=== PATIENT | female | born 1985 | race American Indian/Alaskan Native ===

== ENCOUNTER 2017-05-25 15:25 | Emergency (ER) | payer SELFPAY ==
--- NOTE | 2017-05-25 17:55 | XRay Report ---
FINAL REPORT EXAM: XR FOOT 3+V RT HISTORY: Injury to bottom of rt heel; right foot swelling TECHNIQUE: AP, lateral, and oblique portable views of the right foot PRIORS: None. FINDINGS: There is no evidence for acute fracture or dislocation. No soft tissue swelling or radiopaque foreign bodies are seen. Bony mineralization is normal. Joint spaces are maintained. IMPRESSION: No acute soft tissue or bony abnormality noted.
[2017-05-25 19:06] VITALS: BP 135/81
--- NOTE | 2017-05-25 19:34 | Emergency Department Report ---
ED Lower Extremity HPI - General Chief Complaint: Extremity Injury, Lower Stated Complaint: RIGHT FOOT SWOLLEN Time Seen by Provider: 05/25/17 19:17 Source: patient Mode of arrival: Ambulatory Limitations: No Limitations - History of Present Illness Initial Comments: 31-year-old female presents to ER with complaints of pain in her right heel. This happened yesterday while running. Patient has swelling and pain right heel , she expresses difficulty while walking. MD Complaint: foot injury (injury to right heel) -: Sudden (this happened yesterday while running) Injury: Foot: Right (contusion, heel of right foot) Type of Injury: blunt Place: street/outdoors Severity: moderate Severity scale (0 -10): 6 Worsens With: nothing Context: running Associated Symptoms: swelling, able to partially bear weight - Related Data Previous Rx's Medication Instructions Recorded Last Taken Type Ibuprofen [Motrin 600 MG tab] 600 mg PO Q6HR PRN #30 tablet 05/25/17 Unknown Rx Allergies Allergy/AdvReac Type Severity Reaction Status Date / Time No Known Allergies Allergy Verified 05/25/17 15:37 ED Review of Systems ROS: Stated complaint: RIGHT FOOT SWOLLEN Other details as noted in HPI Comment: All other systems reviewed and negative Constitutional: see HPI. denies: fever, malaise, weakness Eyes: denies: eye pain, eye discharge, vision change ENT: denies: throat pain, dental pain, hearing loss, epistaxis Respiratory: no symptoms reported. denies: cough, shortness of breath, SOB with exertion Cardiovascular: denies: chest pain, palpitations, edema, syncope, paroxysmal nocturnal dyspnea Endocrine: no symptoms reported Gastrointestinal: denies: nausea, vomiting, diarrhea, constipation, hematemesis , melena Genitourinary: denies: dysuria, frequency, hematuria, discharge Musculoskeletal: other (swelling and some tenderness heel of right foot) Neurological: denies: headache, weakness, numbness, paresthesias ED Past Medical Hx - Past Medical History Previous Medical History?: No - Surgical History Past Surgical History?: No - Social History Smoking Status: Never Smoker Substance Use Type: None - Medications Home Medications: Home Medications Medication Instructions Recorded Confirmed Last Taken Type Ibuprofen [Motrin 600 MG tab] 600 mg PO Q6HR PRN #30 tablet 05/25/17 Unknown Rx ED Physical Exam - General Limitations: No Limitations General appearance: alert, in distress ([id number] distress) - Head Head exam: Present: atraumatic, normocephalic, normal inspection - Eye Eye exam: Present: normal appearance, PERRL, EOMI. Absent: scleral icterus, conjunctival injection, nystagmus - ENT ENT exam: Present: normal exam, normal orophraynx, mucous membranes moist - Neck Neck exam: Present: normal inspection, full ROM. Absent: tenderness, lymphadenopathy, thyromegaly - Respiratory Respiratory exam: Present: normal lung sounds bilaterally. Absent: wheezes, rales, rhonchi, chest wall tenderness, accessory muscle use, decreased breath sounds, prolonged expiratory - Cardiovascular Cardiovascular Exam: Present: regular rate, normal rhythm, normal heart sounds. Absent: bradycardia, tachycardia, irregular rhythm, systolic murmur, diastolic murmur - GI/Abdominal GI/Abdominal exam: Present: soft, normal bowel sounds. Absent: distended, tenderness, guarding, hyperactive bowel sounds, hypoactive bowel sounds, organomegaly, mass, bruit - Rectal Rectal exam: Present: deferred - Expanded Lower Extremity Exam Right Hip exam: Present: full ROM. Absent: tenderness, swelling, laceration, ecchymosis, deformity, crepidus Upper Leg exam: Present: normal inspection, full ROM. Absent: abrasion, laceration, ecchymosis Knee exam: Present: normal inspection, full ROM. Absent: tenderness, swelling, abrasion, laceration, ecchymosis, dislocation, erythema Lower Leg exam: Present: normal inspection, full ROM. Absent: tenderness, swelling, laceration, ecchymosis, deformity Ankle exam: Present: normal inspection, full ROM. Absent: tenderness, ecchymosis Foot/Toe exam: Present: tenderness (heel right foot), swelling (heel right foot) , calcaneal tenderness. Absent: laceration, ecchymosis, amputation, puncture wound, foreign body, nail avulsion, subungual hematoma Neuro vascular tendon exam: Present: no vascular compromise. Absent: pulse deficit, abnormal cap refill, motor deficit, sensory deficit, tendon deficit Gait: Positive: not tested/not observed - Back Exam Back exam: Present: normal inspection, full ROM. Absent: tenderness, CVA tenderness (L) - Neurological Exam Neurological exam: Present: alert, oriented X3, CN II-XII intact, motor sensory deficit ED Course Vital Signs 05/25/17 05/25/17 15:28 19:02 Temperature 98.3 F Pulse Rate 87 81 Respiratory 18 16 Rate Blood Pressure 136/83 135/81 O2 Sat by Pulse 99 100 Oximetry Critical Care Time: No Critical care attestation.: If time is entered above; I have spent that time in minutes in the direct care of this critically ill patient, excluding procedure time. ED Disposition Clinical Impression: Contusion of right foot Disposition: DC-01 TO HOME OR SELFCARE Is pt being admited?: No Does the pt Need Aspirin: No Condition: Stable Instructions: Foot Contusion (ED) Additional Instructions: Cool compresses as tolerated to prevent. Follow up with your primary care provider in the next 3 days Prescriptions: Ibuprofen [Motrin 600 MG tab] 600 mg PO Q6HR PRN #30 tablet PRN Reason: Pain Referrals: PRIMARY CARE, [Primary Care Provider] - 3-5 Days Time of Disposition: 19:42
== END 2017-05-25 19:50 | disposition home or self-care (01) ==
LOC: ED 15:25
DX: S90.31XA Contusion of right foot, initial encounter (principal); X58.XXXA Exposure to other specified factors, initial encounter; Y93.02 Activity, running; Y99.9 Unspecified external cause status; Y92.89 Other specified places as the place of occurrence of the external cause
CPT/HCPCS: 99283